=== PATIENT | female | born 1975 | race Two or more races ===

== ENCOUNTER → 2020-05-06 06:00 | Outpatient (CLI) | payer OTHER | END | disposition home or self-care (01) | LOC: LAB 06:00 → ADM 13:45 → AMB-ENDOS 05-12 13:45 → EDSTATUS 05-13 13:45 → AMB-ENDOS 05-13 13:45 | PROVIDERS: ATTEND Surgery | DX: U07.1 COVID-19 (principal); K21.9 Gastro-esophageal reflux disease without esophagitis ==

== ENCOUNTER 2020-07-01 06:22 | Day surgery (SDC) | payer OTHER | END 2020-07-01 10:45 | disposition home or self-care (01) | LOC: AMB-ENDOS 06:22 | PROVIDERS: ATTEND Surgery | DX: K29.50 Unspecified chronic gastritis without bleeding (principal); K44.9 Diaphragmatic hernia without obstruction or gangrene; Z20.828 Contact with and (suspected) exposure to other viral communicable diseases ==